=== PATIENT | male | born 1955 | race Caucasian/White ===

== ENCOUNTER 2021-02-27 06:19 | Day surgery (SDC) | payer BC, MEDICARE ==
[2021-02-27] VITALS (9 sets, daily range): BP systolic 104–139; BP diastolic 62–80
[~2021-02-27] VITALS: Ht 182.9 cm; Wt 87.9 kg
[~2021-02-27 06:19] MED LIST: NO HOME MEDS
[2021-02-27] MEDS ORDERED: diphenhydrAMINE 25mg capsule PO PRN (06:40)
[2021-02-27] MEDS ORDERED: LORazepam 0.5 MG tablet PO PRN (06:40)
[2021-02-27] MEDS ORDERED: normal saline 1,000 ML IV SCH (06:40)
[2021-02-27] MEDS ORDERED: LOSA50TA64 PO (06:50)
[2021-02-27] MEDS ORDERED: PREG150C46 PO (06:50)
[2021-02-27] MEDS ORDERED: ATOR10TA70 PO (06:50)
[2021-02-27] MEDS ORDERED: METO-395 PO (06:50)
[2021-02-27] MEDS ORDERED: AMLO5TAB16 PO (06:50)
[2021-02-27] MEDS ORDERED: magnesium PO (06:58)
[2021-02-27] MEDS ORDERED: MULT-1085 PO (06:58)
[2021-02-27] MEDS ORDERED: BIOT10005 PO (06:58)
[2021-02-27] MEDS ORDERED: CHOL500044 PO (06:58)
[2021-02-27] MEDS ORDERED: LUTE20CA PO (06:58)
[2021-02-27] MEDS ORDERED: OMEG1CAP13 PO (06:58)
[2021-02-27] MEDS ORDERED: VITA15LO2 (06:58)
[2021-02-27] MEDS ORDERED: VITA-268 PO (06:58)
[2021-02-27] MEDS ORDERED: UBID100C16 PO (06:58)
[2021-02-27] MEDS ORDERED: LIDOcaine/PRILOcaine 5gm cream TP ONE (07:00)
[2021-02-27] MEDS ORDERED: ALBU18HF2 PO (07:03)
[2021-02-27] MEDS ORDERED: verapamil 2.5 mg/ml inj IV ONE (07:26)
[2021-02-27] MEDS ORDERED: midazolam 1 mg/ML 2ml injection ONE (07:26)
[2021-02-27] MEDS ORDERED: nitroGLYCERIN-Tridil 50MG/D5W 250 ML IV ONE (07:26)
[2021-02-27] MEDS ORDERED: iohexol 350 MG/ML 50ML vial IV ONE (07:27)
[2021-02-27] MEDS ORDERED: iohexol 350MG/ML 100ml bottle IV ONE ×2 (07:27→08:38)
[2021-02-27] MEDS ORDERED: fentaNYL/PF 50MCG/1 ML 2ML syringe ONE (07:27)
[2021-02-27] MEDS ORDERED: LIDOcaine 1% (10mg/ml)w/preservative injection 20ml MDV ONE (07:27)
[2021-02-27] MEDS ORDERED: heparin 1,000unit/ml 10ml vial 10 ML ONE (07:41)
[2021-02-27 07:43] LABS: BASOPHILS # (AUTO) 0.1 X10'3 (0-0.2); EOSINOPHILS # (AUTO) 0.4 X10'3 (0-0.9); LYMPHOCYTES # (AUTO) 1.2 X10'3 (1.1-4.8); MEAN PLATELET VOLUME 7.6 FL (7.4-10.4); MONOCYTES # (AUTO) 0.3 X10'3 (0-0.9); NEUTROPHILS # (AUTO) 1.9 X10'3 (1.8-7.7); RED CELL DISTRIBUTION WIDTH 12.9 % (11.5-14.5)
[2021-02-27 07:45] LABS: BASOPHILS % (AUTO) 2.2 % (0-1); EOSINOPHILS % (AUTO) 9.9 % (0-6); HEMATOCRIT 39.9 % (42.0-52.0); HEMOGLOBIN 13.7 g/dl (14.0-17.9); LYMPHOCYTES % (AUTO) 30.4 % (21-51); MEAN CORPUSCULAR HEMOGLOBIN 34.3 PG (27.0-31.0); MEAN CORPUSCULAR VOLUME 99.7 FL (78-98); MONOCYTES % (AUTO) 8.3 % (2-12); NEUTROPHILS % (AUTO) 49.2 % (42-75); PLATELET COUNT 230 X10'3 (140-440); WHITE BLOOD COUNT 3.8 X10'3 (4.5-11.0)
[2021-02-27 07:49] LABS: PARTIAL THROMBOPLASTIN TIME 29 SECONDS (22-32)
[2021-02-27 08:00] LABS: ALBUMIN 3.5 G/DL (3.4-5.0); ANION GAP 8 (8-16); BLOOD UREA NITROGEN 12 MG/DL (7-18); BUN/CREATININE RATIO 15.2 (5.4-32.0); CALCIUM 8.2 MG/DL (8.5-10.1); CHLORIDE 109 MMOL/L (99-107); CREATININE 0.79 MG/DL (0.60-1.10); GLUCOSE 83 MG/DL (70-104); POTASSIUM 3.8 MMOL/L (3.5-5.1); SODIUM 145 MMOL/L (135-145); eGFR > 90 ML/MIN
== END 2021-02-27 13:05 | disposition home or self-care (01) ==
LOC: SSTAY O 06:19
PROVIDERS: ATTEND Internal Medicine Cardiovascular Disease
DX: R94.39 Abnormal result of other cardiovascular function study (principal); I25.10 Atherosclerotic heart disease of native coronary artery without angina pectoris; E78.5 Hyperlipidemia, unspecified; I10 Essential (primary) hypertension; I47.1 Supraventricular tachycardia; M19.90 Unspecified osteoarthritis, unspecified site; G62.9 Polyneuropathy, unspecified; Z79.01 Long term (current) use of anticoagulants; Z79.899 Other long term (current) drug therapy; Z98.890 Other specified postprocedural states; Z83.6 Family history of other diseases of the respiratory system
CPT/HCPCS: 36415; 76937; 80048; 85025; 85610; 85730; 93005; 93458; 99152; 99153; C1769; C1894; J1644; J2001; J2250; J3010; J7030; Q0163; Q9967; A4620; A5120; A6258; J3490